=== PATIENT | female | born 1960 | race Two or more races ===

== ENCOUNTER 2020-03-21 08:46 | Outpatient (CLI) | payer MEDICAID ==
[~2020-03-21] VITALS: Ht 157.5 cm; Wt 84.8 kg
[2020-03-21 15:54] VITALS: BP 127/74
[2020-03-21] MEDS ORDERED: PRAVASTATIN SOD20 M1 ORAL (15:54)
[2020-03-21] MEDS ORDERED: PAMELOR10 MG ORAL (15:54)
--- NOTE | 2020-03-21 17:45 | Consultation ---
DATE OF CONSULTATION: 03/21/2020 CHIEF COMPLAINT: Referral for stool OB positive, GERD, screening colonoscopy. PAST MEDICAL HISTORY: 1. Sleep apnea. 2. . 3. Depression. 4. Thyroid nodule. PAST SURGICAL HISTORY: None. MEDICATIONS: Pravastatin and nortriptyline. ALLERGIES: No known drug allergies. FAMILY HISTORY: No family history of GI malignancies. SOCIAL HISTORY: The patient denies any tobacco, alcohol, drug abuse. REVIEW OF SYSTEMS: Positive for abdominal pain, dysphagia, odynophagia. PHYSICAL EXAMINATION: VITAL SIGNS: Temperature 97.5, pulse is 86, respirations 20, blood pressure 127/74. HEENT: Normocephalic and atraumatic. Sclerae anicteric. NECK: Supple. No evidence of obvious lymphadenopathy. CARDIOVASCULAR: Regular rate and rhythm. Plus S1-S2. LUNGS: Clear to auscultation bilaterally. ABDOMEN: Positive bowel sounds. Soft and nontender. No rebound. No guarding. No peritoneal sign. EXTREMITIES: No cyanosis, no clubbing, no edema. ASSESSMENT AND PLAN: The patient is a 60-year-old female with stool OB positive, dysphagia, need both EGD and colonoscopy, also needs a screening colonoscopy. Risks and benefits of procedure was explained to her. Instructions were given to her with the prep instruction. We will schedule as soon as authorization is obtained. Mayo Carolina M.D. DR: Logan JOB#: [id number] CC:
== END 2020-03-21 10:46 | disposition home or self-care (01) ==
LOC: PAN 08:46
DX: K21.9 Gastro-esophageal reflux disease without esophagitis (principal); G47.30 Sleep apnea, unspecified; F39 Unspecified mood [affective] disorder; Z79.899 Other long term (current) drug therapy; R13.10 Dysphagia, unspecified
CPT/HCPCS: G0463

== ENCOUNTER 2020-05-16 08:53 | Outpatient (CLI) | payer MEDICAID ==
[~2020-05-16 08:53] MED LIST: PAMELOR10 MG ORAL; PRAVASTATIN SOD20 M1 ORAL
--- NOTE | 2020-05-16 09:29 | General Progress Note ---
Assessment/Plan Assessment/Plan: HP positive gastritis 1.5 cm colon polyp treat for HP RTC 3 months repeat colonoscopy 3 years Subjective Allergies: Coded Allergies: No Known Allergies (Unverified , 03/21/20) Objective General Appearance: alert EENT: normal ENT inspection Neck: supple Cardiovascular: normal rate Respiratory/Chest: decreased breath sounds Abdomen: normal bowel sounds, non tender, soft Extremities: non-tender Mayo Carolina MD May 16, 2020 09:29
[2020-05-16 14:14] VITALS: BP 120/76
== END 2020-05-16 10:53 | disposition home or self-care (01) ==
LOC: PAN 08:53
DX: K29.70 Gastritis, unspecified, without bleeding (principal); B96.81 Helicobacter pylori [H. pylori] as the cause of diseases classified elsewhere; K63.5 Polyp of colon

== ENCOUNTER 2020-08-15 08:51 | Outpatient (CLI) | payer MEDICAID ==
[2020-08-15 09:05] VITALS: BP 116/71
--- NOTE | 2020-08-15 10:06 | General Progress Note ---
Subjective ROS Limited/Unobtainable: No Allergies: Coded Allergies: No Known Allergies (Unverified , 03/21/20) Objective Last 24 Hour Vital Signs Date Time Temp Pulse Resp B/P (MAP) Pulse Ox O2 Delivery O2 Flow Rate FiO2 08/15/20 09:05 97.7 83 16 116/71 96 General Appearance: alert EENT: normal ENT inspection Neck: supple Cardiovascular: normal rate Respiratory/Chest: decreased breath sounds Abdomen: normal bowel sounds, non tender, soft Extremities: non-tender Assessment/Plan Assessment/Plan: Assessment/Plan Assessment/Plan: HP positive gastritis 1.5 cm colon polyp s/p for HP Check breath test repeat colonoscopy 3 years Mayo Carolina MD Aug 15, 2020 10:06
== END 2020-08-15 10:51 | disposition home or self-care (01) ==
LOC: PAN 08:51
DX: K29.70 Gastritis, unspecified, without bleeding (principal); B96.81 Helicobacter pylori [H. pylori] as the cause of diseases classified elsewhere; K63.5 Polyp of colon
CPT/HCPCS: 99212

== ENCOUNTER 2020-10-10 08:51 | Outpatient (CLI) | payer MEDICAID ==
--- NOTE | 2020-10-10 09:43 | General Progress Note ---
Subjective ROS Limited/Unobtainable: Yes Allergies: Coded Allergies: No Known Allergies (Unverified , 03/21/20) Objective General Appearance: alert EENT: normal ENT inspection Neck: supple Cardiovascular: normal rate Respiratory/Chest: decreased breath sounds Abdomen: normal bowel sounds, non tender, soft Extremities: non-tender Assessment/Plan Assessment/Plan: Assessment/Plan Assessment/Plan: HP positive gastritis 1.5 cm colon polyp s/p for HP>> now neg BT repeat colonoscopy 3 years Mayo Carolina MD Oct 10, 2020 09:43
== END 2020-10-10 10:51 | disposition home or self-care (01) ==
LOC: PAN 08:51
DX: K29.70 Gastritis, unspecified, without bleeding (principal); B96.81 Helicobacter pylori [H. pylori] as the cause of diseases classified elsewhere; K63.5 Polyp of colon
CPT/HCPCS: 99212